=== PATIENT | female | born 1970 | race Caucasian/White ===

== ENCOUNTER → 2020-11-07 02:28 | Outpatient (CLI) | payer OTHER, SELFPAY ==
[2020-11-07 20:46] LABS: SARS-CoV-2 RNA PCR Positive
== END ==
PROVIDERS: PCP Internal Medicine; Visit Provider Internal Medicine
DX: U07.1 COVID-19 (principal)
CPT/HCPCS: C9803; U0003; U0005

== ENCOUNTER → 2020-11-17 04:44 | Outpatient (CLI) | payer OTHER, SELFPAY ==
[2020-11-17 18:26] LABS: SARS-CoV-2 RNA PCR Positive
== END ==
PROVIDERS: PCP Internal Medicine; Visit Provider Internal Medicine
DX: U07.1 COVID-19 (principal)
CPT/HCPCS: C9803; U0003; U0005

== ENCOUNTER 2021-05-18 00:22 | Day surgery (SDC) | payer OTHER, SELFPAY ==
[2021-05-09 11:25] VITALS: BMI 33.2
--- NOTE | 2021-05-17 12:32 | PM.HPGS ---
History of Present Illness History of Present Illness Consent: Risks, benefits, and alternatives have been discussed and questions answered. Patient agrees to proceed with procedure. Chief complaint: positive cologuard Narrative: Cece Caldwell is a 51 year old female referred for colon cancer screening she performed a Cologuard test which was positive Review of Systems Review of Systems: All systems reviewed & are unremarkable except as noted in HPI and below PMFSH Past Medical History Medical History Acneiform eruption Anxiety with depression BMI 35.0-35.9,adult BMI 36.0-36.9,adult BMI 39.0-39.9,adult Body mass index (BMI) 40.0-44.9, adult Colon cancer screening DM type 2 (diabetes mellitus, type 2) Encounter for preventive health examination Encounter for routine adult health examination without abnormal findings Hyperlipidemia Hypersomnolence On superintendent terminal drug therapy Personal history of COVID-19 Physical exam Positive colorectal cancer screening using Cologuard test Vitamin D deficiency Family History Family History Grandparent Diabetes mellitus Family history of hypercholesterolemia Hypertension Acute myocardial infarction Cerebrovascular accident Carcinoma of colon Sibling Diabetes mellitus Family history of hypercholesterolemia Hypertension Mother Family history of hypercholesterolemia Hypertension Family history of obesity Father Hypertension Acute myocardial infarction Social History Social History Smoking status: Never smoker Second hand tobacco smoke exposure: No Alcohol intake: current Alcohol use details: Pt drinks 1-2 glasses wine every 6 months. Living arrangements: with family Spiritual care concerns: No Meds Home Medications and Allergies Home Medications Medication Instructions Recorded Confirmed Type multivitamin 1 tablet PO DAILY 03/04/19 05/18/21 History niacin 500 mg capsule,extended 500 mg PO BID 03/04/19 05/18/21 History release cholecalciferol (vitamin D3) 25 25 mcg PO BID cap 07/07/19 05/18/21 History mcg (1,000 unit) capsule blood sugar diagnostic #100 each 07/21/19 03/02/21 Rx lancets #100 each 08/09/19 03/02/21 Rx calcium carbonate 600 mg calcium 600 mg PO DAILY 12/06/19 05/18/21 History (1,500 mg) tablet omega-3 fatty acids 1,000 mg 2,000 mg PO BID cap 12/06/19 05/18/21 History capsule cetirizine 10 mg tablet 10 mg PO DAILY 01/26/20 05/18/21 History flash glucose scanning reader #1 ea 05/25/20 03/02/21 Rx semaglutide 14 mg tablet 14 mg PO DAILY #90 tablet 05/25/20 05/18/21 Rx clobetasol 0.05 % topical cream 1 applic TOPICAL BID #45 g 09/20/20 05/09/21 Rx bupropion HCl 150 mg 24 hr tablet, 150 mg PO QAM #90 tablet 10/10/20 05/18/21 Rx extended release citalopram 20 mg tablet 20 mg PO DAILY #90 tablet 01/01/21 05/18/21 Rx atorvastatin 40 mg tablet 40 mg PO DAILY #90 tablet 02/28/21 05/18/21 Rx dapagliflozin 10 mg-metformin ER See Rx Instructions .ROUTE 02/28/21 05/18/21 Rx 1,000 mg tablet,extended release .COMPLEX #90 tablet 24hr flash glucose sensor See Rx Instructions .ROUTE 03/05/21 Rx .COMPLEX #2 ea trazodone 100 mg PO HS 05/09/21 05/18/21 History Allergies Allergy/AdvReac Type Severity Reaction Status Date / Time erythromycin base Allergy Severe Vomiting Verified 05/18/21 08:39 Tetanus Vaccines and Toxoid Allergy Unknown Unknown Verified 05/18/21 08:39 doxycycline AdvReac Unknown Verified 05/18/21 08:39 Exam Resp: Auscultation: clear to auscultation bilaterally Cardio: Rate: regular rate Rhythm: regular rhythm GI: GI Palp: Yes Soft to palpation and No Tenderness to palpation present (GI) Assessment and Plan Assessment and plan (1) Colon cancer screening: Code(s): Z12.11 - Encounter for screening for malignant neopla
[2021-05-18 08:41] VITALS: BP 131/80; PULSE 95; RESP 18; TEMP 36.1; O2SAT 98; BMI 32.1
[2021-05-18] MEDS: LACTATED RINGERS 1,000 ML 150 ML IV CONT (08:45)
--- NOTE | 2021-05-18 09:08 | WPDANESEPPF ---
Anes - Initial Pre Proc Eval Procedure: Operation Date: 05/18/21 09:30 Proposed Procedures p Colonoscopy - Kervin Vigil MD Date/Time: 05/18/21 09:08 Surgeon: Kervin Vigil MD Pre Op Diagnosis: positive cologuard Patient Data Age: 51 Gender: F Height: 1.75 m Weight: 98.9 kg Last Vital Signs Temp 36.1 C L 05/18/21 08:41 Pulse 95 05/18/21 08:41 Resp 18 05/18/21 08:41 BP 131/80 05/18/21 08:41 Pulse Ox 98 05/18/21 08:41 Allergies Allergy/AdvReac Type Severity Reaction Status Date / Time erythromycin base Allergy Severe Vomiting Verified 05/18/21 08:39 Tetanus Vaccines and Toxoid Allergy Unknown Unknown Verified 05/18/21 08:39 doxycycline AdvReac Unknown Verified 05/18/21 08:39 Home Medications Medication Instructions Recorded Confirmed Type multivitamin 1 tablet PO DAILY 03/04/19 05/18/21 History niacin 500 mg capsule,extended 500 mg PO BID 03/04/19 05/18/21 History release cholecalciferol (vitamin D3) 25 25 mcg PO BID cap 07/07/19 05/18/21 History mcg (1,000 unit) capsule blood sugar diagnostic #100 each 07/21/19 03/02/21 Rx lancets #100 each 08/09/19 03/02/21 Rx calcium carbonate 600 mg calcium 600 mg PO DAILY 12/06/19 05/18/21 History (1,500 mg) tablet omega-3 fatty acids 1,000 mg 2,000 mg PO BID cap 12/06/19 05/18/21 History capsule cetirizine 10 mg tablet 10 mg PO DAILY 01/26/20 05/18/21 History flash glucose scanning reader #1 ea 05/25/20 03/02/21 Rx semaglutide 14 mg tablet 14 mg PO DAILY #90 tablet 05/25/20 05/18/21 Rx clobetasol 0.05 % topical cream 1 applic TOPICAL BID #45 g 09/20/20 05/09/21 Rx bupropion HCl 150 mg 24 hr tablet, 150 mg PO QAM #90 tablet 10/10/20 05/18/21 Rx extended release citalopram 20 mg tablet 20 mg PO DAILY #90 tablet 11/08/21 03/25/22 Rx atorvastatin 40 mg tablet 40 mg PO DAILY #90 tablet 02/28/21 05/18/21 Rx dapagliflozin 10 mg-metformin ER See Rx Instructions .ROUTE 02/28/21 05/18/21 Rx 1,000 mg tablet,extended release .COMPLEX #90 tablet 24hr flash glucose sensor See Rx Instructions .ROUTE 03/05/21 Rx .COMPLEX #2 ea trazodone 100 mg PO HS 05/09/21 05/18/21 History Patient hx anesthesia problems: none Family hx anesthesia problems: none Results Review: All pre-operative results and documents have been reviewed as part of the pre-operative evaluation. [facility] Past Medical History Medical History Acneiform eruption Anxiety with depression BMI 35.0-35.9,adult BMI 36.0-36.9,adult BMI 39.0-39.9,adult Body mass index (BMI) 40.0-44.9, adult Colon cancer screening DM type 2 (diabetes mellitus, type 2) Encounter for preventive health examination Encounter for routine adult health examination without abnormal findings Hyperlipidemia Hypersomnolence On terminal operator drug therapy Personal history of COVID-19 Physical exam Positive colorectal cancer screening using Cologuard test Vitamin D deficiency Family History Family History Grandparent Diabetes mellitus Family history of hypercholesterolemia Hypertension Acute myocardial infarction Cerebrovascular accident Carcinoma of colon Sibling Diabetes mellitus Family history of hypercholesterolemia Hypertension Mother Family history of hypercholesterolemia Hypertension Family history of obesity Father Hypertension Acute myocardial infarction Social History Social History Smoking status: Never smoker Second hand tobacco smoke exposure: No Alcohol intake: current Alcohol use details: Pt drinks 1-2 glasses wine every 6 months. Living arrangements: with family Spiritual care concerns: No Anes - Eval Final PreProcedure Day of Procedure 05/18/21 09:08 Patient weight: obese Heart: regular rate and rhythm Lungs: clear to auscultation Airway: Mallampati scale class
[2021-05-18] MEDS: SIMETHICONE ORAL SUSPENSION 20 MG/0.3 ML 30 ML BOTTLE 0.6 ML IRRIGATION (09:34)
[2021-05-18 09:44] VITALS: BP 118/61; PULSE 88; RESP 20; O2SAT 98
[2021-05-18 09:54] VITALS: BP 120/58; PULSE 84; RESP 20; O2SAT 99
[2021-05-18 10:04] VITALS: BP 116/60; PULSE 82; RESP 18; O2SAT 99
== END 2021-05-18 10:05 | disposition home or self-care (01) ==
PROVIDERS: PCP Internal Medicine; Visit Provider Internal Medicine Gastroenterology
PROC: 0DJD8ZZ Inspection of Lower Intestinal Tract, Via Natural or Artificial Opening Endoscopic (ICD-10-PCS; CPT 45378; principal; 2021-05-18 09:30)
DX: Z12.11 Encounter for screening for malignant neoplasm of colon (principal); R19.5 Other fecal abnormalities; E11.9 Type 2 diabetes mellitus without complications; E78.5 Hyperlipidemia, unspecified; E55.9 Vitamin D deficiency, unspecified; Z86.16 Personal history of COVID-19; Z79.84 Long term (current) use of oral hypoglycemic drugs; E66.9 Obesity, unspecified; Z68.32 Body mass index [BMI] 32.0-32.9, adult
CPT/HCPCS: 45378; J2704; J7120

== ENCOUNTER 2022-09-04 10:15 | Outpatient (CLI) | payer OTHER, SELFPAY ==
[2022-09-04 10:40] LABS: Basophils Percent Auto 0.6 % (0.2-1.2); Eosinophils Absolute Auto 0.2 K/mm3 (0-0.3); Eosinophils Percent Auto 2.9 % (0-4.4); Hematocrit 44.1 % (37.0-47.0); Hemoglobin 13.9 g/dL (12.0-15.0); Immature Granulocyte Absolute 0.02 K/mm3 (0.00-0.031); Immature Granulocyte Percent A 0.3 % (0-0.5); Lymphocytes Absolute Auto 1.53 K/mm3 (0.9-3.2); Lymphocytes Percent Auto 24.6 % (18.3-44.2); Mean Corpuscular HGB Conc 31.5 g/dl (32-36); Mean Corpuscular Hemoglobin 28.2 pg (26-34); Mean Corpuscular Volume 89.5 fl (80-100); Mean Platelet Volume 9.1 fl (7.4-10.4); Monocytes Absolute Auto 0.6 K/mm3 (0.1-0.6); Monocytes Percent Auto 10.1 % (2.6-8.5); Neutrophils Absolute Auto 3.8 K/mm3 (1.3-6.7); Neutrophils Percent Auto 61.5 % (45.5-73.1); Platelet Count Result 211 k/mm3 (150-375); Red Blood Count 4.93 M/mm3 (4.2-5.4); Red Cell Distribution Width 13.4 % (11.5-14.5); White Blood Count 6.2 K/mm3 (4.5-10.0)
[2022-09-04 10:52] LABS: Alanine Aminotransferase 36 U/L (6-35); Albumin Level 4.5 g/dL (3.5-5.1); Alkaline Phosphatase 90 U/L (38-126); Anion Gap 5 mmol/L (8-16); Aspartate Amino Transferase 33 U/L (14-36); Bilirubin,Total 0.9 mg/dL (0.2-1.3); Blood Urea Nitrogen 14 mg/dL (7-17); Calcium 9.1 mg/dL (8.4-10.2); Carbon Dioxide 32 mmol/L (22-30); Chloride 102 mmol/L (98-107); Cholesterol 148 mg/dL (0-200); Estimated Glomerular Filt Rate > 60; Glucose 100 mg/dL (65-110); HDL Direct 40 mg/dL; Potassium 4.2 mmol/L (3.4-5.0); Sodium 139 mmol/L (137-145); Triglycerides 66 mg/dL (<150)
[2022-09-04 11:01] LABS: Hemoglobin A1C 6.3 % (<5.7)
[2022-09-04 11:04] LABS: LDL Cholesterol Direct 78 mg/dL
[2022-09-04 11:08] LABS: Appearance Urine Clear (Clear); Bilirubin Urine Negative (Negative); Blood Urine Negative (Negative); Color Urine Yellow (Yellow); Glucose Urine UA 3+ mg/dL (Negative); Ketones Urine Negative (Negative); Leukocyte Esterase Ur Negative LEU/UL (Negative); Nitrate Urine Negative (Negative); Protein Urine Negative (Negative); Specific Grav Ur 1.008 (1.001-1.035); Urobilinogen Urine 0.2 mg/dL (<2.0)
[2022-09-04 11:13] LABS: Add Urine Microscopic? NO
[2022-09-04 11:31] LABS: Free T4 Free Thyroxine 0.99 ng/mL (0.78-2.19)
== END 2022-09-04 10:16 | disposition home or self-care (01) ==
LOC: ANHLAB 10:16
PROVIDERS: PCP Internal Medicine; Visit Provider Internal Medicine
DX: Z13.29 Encounter for screening for other suspected endocrine disorder (principal); Z79.899 Other long term (current) drug therapy; E11.9 Type 2 diabetes mellitus without complications; E78.5 Hyperlipidemia, unspecified
CPT/HCPCS: 36415; 80053; 80061; 81003; 83036; 84439; 84443; 85025